=== PATIENT | female | born 1960 | race Caucasian/White ===

== ENCOUNTER 2021-05-22 12:09 | Outpatient (CLI) | payer OTHER, SELFPAY ==
[2021-05-22 12:14] VITALS: BP 131/80; PULSE 78; RESP 16; TEMP 37.1; O2SAT 99; BMI 23.1
[2021-05-22] MEDS: 0.9% Saline Lock 10 ML Syringe IV (12:19)
[2021-05-22 12:57] VITALS: BP 132/84; PULSE 83; RESP 16; TEMP 37; O2SAT 97
[2021-05-22 13:45] VITALS: BP 123/74; PULSE 64; RESP 16; TEMP 36.9; O2SAT 98
== END 2021-05-22 13:57 | disposition home or self-care (01) ==
LOC: MS3OUT 12:10 → MS3 12:10
PROVIDERS: PCP Physician Assistant Surgical; Visit Provider Nurse Practitioner Acute Care
DX: Z23 Encounter for immunization (principal); U07.1 COVID-19
CPT/HCPCS: J7050; M0245; Q0245; A4216